=== PATIENT | female | born 1935 ===

== ENCOUNTER 2017-03-01 19:25 | Inpatient (IN) | payer MEDICARE, OTHER ==
[2017-03-01 22:05] LABS: Glucose,Whole Blood 142 mg/dL (75-99)
[2017-03-01 23:59] LABS: Glucose,Whole Blood 156 mg/dL (75-99)
[2017-03-02] MEDS: SODIUM CHLORIDE 0.45% 1,000 ML IV SCH ×2 (01:05→18:17)
[2017-03-02 02:20] LABS: Glucose,Whole Blood 187 mg/dL (75-99)
[2017-03-02 04:12] LABS: Glucose,Whole Blood 229 mg/dL (75-99)
[2017-03-02] MEDS ORDERED: INSULIN REGULAR 100 UNIT in SODIUM CHLORIDE 0.9% 100 ML IV SCH (04:30)
[2017-03-02 06:01] LABS: Glucose,Whole Blood 229 mg/dL (75-99)
[2017-03-02 06:25] LABS: Basophils % (A) 0 %; CH 30.2; CHCM 29.5; Eosinophils % (A) 0 %; HCT 46.3 % (34.0-46.0); HDW 2.45; HGB 13.4 gm/dL (11.4-16.0); Hypochromasia Marked; Luc # (Auto) 0.08; Luc % (Auto) 1; Lymphocytes # (A) 0.9 k/uL (1.0-4.8); Lymphocytes % (A) 10 %; MCH 29.7 pg (25.0-35.0); MCHC 28.9 g/dL (31.0-37.0); MCV 102.9 fL (80.0-100.0); Macrocytosis Slight; Mean Platelet Volume 9.8; Monocytes # (A) 0.3 k/uL (0-1.0); Monocytes % (A) 3 %; Neutrophils # (A) 7.9 k/uL (1.3-7.7); Neutrophils % (A) 86 %; RDW 14.2 % (11.5-15.5); WBC 9.3 k/uL (3.8-10.6); WBC (Perox) 9.12
[2017-03-02 06:42] LABS: Magnesium 2.8 mg/dL (1.6-2.3); Potassium 4.4 mmol/L (3.5-5.1); Total Bilirubin 0.5 mg/dL (0.2-1.3); Total Protein 5.7 g/dL (6.3-8.2)
[2017-03-02] MEDS: INSULIN LISPRO (humaLOG) 300 UNIT/3 ML VIAL SQ SCH ×3 (06:47→18:17)
[2017-03-02] MEDS ORDERED: DEXTROSE 5% IN WATER 1,000 ML IV ONE (07:18)
[2017-03-02] MEDS ORDERED: INSULIN LISPRO (humaLOG) 300 UNIT/3 ML VIAL SQ SCH (07:30)
[2017-03-02 08:08] LABS: Glucose,Whole Blood 219 mg/dL (75-99)
[2017-03-02 10:03] LABS: Glucose,Whole Blood 241 mg/dL (75-99)
[2017-03-02 10:15] VITALS: BMI 22.6
[2017-03-02] MEDS: INSULIN REGULAR 100 UNIT in SODIUM CHLORIDE 0.9% 100 ML IV SCH (10:21)
[2017-03-02 12:38] LABS: Glucose,Whole Blood 274 mg/dL (75-99)
--- NOTE | 2017-03-02 13:25 | P.HPIM ---
History of Present Illness 81-year-old female with appears to have as before dementia, daughter at bedside I was able to get extensive history from the daughter. Patient's etiology of dementia is unknown, can be vascular dementia positive was started is admitted for severe dehydration and hyponatremia patient lives it long-term nursing facility in patient is quite dehydrated doesn't drink or eat well patient is also being treated for urinary tract infection although I do not have significant evidence for that urease was not obtained patient is quite dehydrated apparently was more confused patient is unarousable at this point of time patient does respond to painful still malaise able to protect the airway. Patient's sodium is 166 with chloride of 134 with elevated BUN/creatinine patient is diabetic is on IV insulin and D5 water. 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 Past Anesthesia/Blood Transfusion Reactions: No Reported Reaction Past Psychological History: Anxiety, Schizophrenia Smoking Status: Never smoker Past Drug Use History: None Reported - Past Family History Mother Additional Family Medical History / Comment(s): n/a Father Family Medical History: Myocardial Infarction (DC) Medications and Allergies Home Medications Medication Instructions Recorded Confirmed Type Aspirin 81 mg PO DAILY 03/02/17 03/02/17 History Bisacodyl [Dulcolax] 10 mg RECTAL DAILY PRN 03/02/17 03/02/17 History Ciprofloxacin HCl [Cipro] 500 mg PO BID@1100,2100 03/02/17 03/02/17 History Citalopram Hydrobromide 20 mg PO DAILY@199903/02/17 03/02/17 History [Citalopram HBr] HYDROcodone/APAP 5-325MG [[place] 1 tab PO BID@1100,2000 03/02/17 03/02/17 History 5-325] Hydrocodone/Acetaminophen [[place] 1 tab PO Q4HR PRN 03/02/17 03/02/17 History 5-325] Insulin Glargine,Hum.rec.anlog 8 unit SQ HS 03/02/17 03/02/17 History [Lantus Solostar] LORazepam [Ativan] 0.5 mg PO DAILY@1800 03/02/17 03/02/17 History Loperamide [Imodium] 2 mg PO QID PRN 03/02/17 03/02/17 History Magnesium Hydroxide [Milk of 2,400 mg PO DAILY PRN 03/02/17 03/02/17 History Magnesia] Magnesium Oxide [Mag-Ox] 400 mg PO DAILY@1100 03/02/17 03/02/17 History Na Phos,M-B/Na Phos,Di-Ba [Fleet 133 ml RECTAL DAILY PRN 03/02/17 03/02/17 History Adult] Omeprazole [PriLOSEC] 20 mg PO DAILY@1100 03/02/17 03/02/17 History Sennosides-Docusate Sodium 2 tab PO DAILY@1100 03/02/17 03/02/17 History [Senokot-S] glipiZIDE [Glucotrol] 5 mg PO DAILY 03/02/17 03/02/17 History Allergies Allergy/AdvReac Type Severity Reaction Status Date / Time No Known Allergies Allergy Verified 03/01/17 23:19 Physical Exam Vitals: Vital Signs Temp Pulse Resp BP Pulse Ox 03/02/17 11:44 98.1 F 68 20 116/67 100 03/02/17 08:00 97.6 F 70 20 119/85 99 03/02/17 03:37 66 20 03/02/17 03:34 20 97 03/02/17 03:33 97.1 F L 66 19 150/67 88 L 03/02/17 00:00 64 19 03/01/17 23:54 97.9 F 64 19 129/60 93 L 03/01/17 22:07 96.8 F L 79 19 115/65 97 03/01/17 21:59 96.8 F L 79 19 115/65 97 Intake and Output 03/01/17 03/02/17 03/02/17 22:59 06:59 14:59 Intake Total 800 7.733 Output Total 50 800 Balance -50 0 7.733 Intake: Intake, IV Titration 800 7.733 Amount Insulin Regular 100 unit 7.733 In Sodium Chloride 0.9% 100 ml @ Titrate IV .Q0M GABY Rx#:[id number] Sodium Chloride 0.45% 1, 800 000 ml @ 100 mls/hr IV . Q10H GABY Rx#:[id number] Output: Urine 50 800 Other: Voiding Method Indwelling Catheter Indwelling Catheter Indwelling Catheter Weight 52.5 kg 52.5 kg Patient Weight 03/03/17 06:59 Weight 52.5 kg PHYSICAL EXAMINATION: GENERAL: The patient is pretty much obtunded unresponsive unresponsive to painful stimuli HEENT: Pupils are round and equally reacting to light. Dry mucous membranes, he appeared to be severely dehydrated CARDIOVASCULAR: S1 and S2 present. No murmurs, rubs, or gallops. PULMONARY: Chest is clear to auscultation, no wheezing or crackles. ABDOMEN: Soft, nontender, nondistended, normoactive bowel sounds. No palpable organomegaly. MUSCULOSKELETAL: No joint swelling or deformity. EXTREMITIES: No cyanosis, clubbing, or pedal edema. NEUROLOGICAL: Unable to assess SKIN: No rashes. Results CBC & Chem 7: 03/02/17 05:49 03/02/17 05:49 Labs: Abnormal Lab Results - Last 24 Hours (Table) 03/01/17 03/01/17 03/02/17 Range/Units 22:03 23:58 02:16 Hct (34.0-46.0) % MCV (80.0-100.0) fL MCHC (31.0-37.0) g/dL Plt Count (150-450) k/uL Neutrophils # (1.3-7.7) k/uL Lymphocytes # (1.0-4.8) k/uL Sodium (137-145) mmol/L Chloride (98-107) mmol/L Carbon Dioxide (22-30) mmol/L BUN (7-17) mg/dL Creatinine (0.52-1.04) mg/dL Glucose (74-99) mg/dL POC Glucose (mg/dL) 142 H 156 H 187 H (75-99) mg/dL Hemoglobin A1c (4.2-6.1) % Calcium (8.4-10.2) mg/dL Magnesium (1.6-2.3) mg/dL AST (14-36) U/L ALT (9-52) U/L Troponin I (0.000-0.034) ng/mL Total Protein (6.3-8.2) g/dL Albumin (3.5-5.0) g/dL 03/02/17 03/02/17 03/02/17 Range/Units 04:11 05:49 05:49 Hct 46.3 H (34.0-46.0) % MCV 102.9 H (80.0-100.0) fL MCHC 28.9 L (31.0-37.0) g/dL Plt Count 108 L (150-450) k/uL Neutrophils # 7.9 H (1.3-7.7) k/uL Lymphocytes # 0.9 L (1.0-4.8) k/uL Sodium (137-145) mmol/L Chloride (98-107) mmol/L Carbon Dioxide (22-30) mmol/L BUN (7-17) mg/dL Creatinine (0.52-1.04) mg/dL Glucose (74-99) mg/dL POC Glucose (mg/dL) 229 H (75-99) mg/dL Hemoglobin A1c (4.2-6.1) % Calcium (8.4-10.2) mg/dL Magnesium (1.6-2.3) mg/dL AST (14-36) U/L ALT (9-52) U/L Troponin I 0.051 H* (0.000-0.034) ng/mL Total Protein (6.3-8.2) g/dL Albumin (3.5-5.0) g/dL 03/02/17 03/02/17 03/02/17 Range/Units 05:49 05:49 05:59 Hct (34.0-46.0) % MCV (80.0-100.0) fL MCHC (31.0-37.0) g/dL Plt Count (150-450) k/uL Neutrophils # (1.3-7.7) k/uL Lymphocytes # (1.0-4.8) k/uL Sodium 166 H* (137-145) mmol/L Chloride 134 H* (98-107) mmol/L Carbon Dioxide 20 L (22-30) mmol/L BUN 83 H* (7-17) mg/dL Creatinine 2.30 H (0.52-1.04) mg/dL Glucose 239 H (74-99) mg/dL POC Glucose (mg/dL) 229 H (75-99) mg/dL Hemoglobin A1c 11.0 H (4.2-6.1) % Calcium 8.0 L (8.4-10.2) mg/dL Magnesium 2.8 H (1.6-2.3) mg/dL AST 146 H (14-36) U/L ALT 92 H (9-52) U/L Troponin I (0.000-0.034) ng/mL Total Protein 5.7 L (6.3-8.2) g/dL Albumin 2.9 L (3.5-5.0) g/dL 03/02/17 03/02/17 03/02/17 Range/Units 07:59 10:00 12:04 Hct (34.0-46.0) % MCV (80.0-100.0) fL MCHC (31.0-37.0) g/dL Plt Count (150-450) k/uL Neutrophils # (1.3-7.7) k/uL Lymphocytes # (1.0-4.8) k/uL Sodium (137-145) mmol/L Chloride (98-107) mmol/L Carbon Dioxide (22-30) mmol/L BUN (7-17) mg/dL Creatinine (0.52-1.04) mg/dL Glucose (74-99) mg/dL POC Glucose (mg/dL) 219 H 241 H 274 H (75-99) mg/dL Hemoglobin A1c (4.2-6.1) % Calcium (8.4-10.2) mg/dL Magnesium (1.6-2.3) mg/dL AST (14-36) U/L ALT (9-52) U/L Troponin I (0.000-0.034) ng/mL Total Protein (6.3-8.2) g/dL Albumin (3.5-5.0) g/dL Thrombosis Risk Factor Assmnt - Choose All That Apply Each Risk Factor Represents 3 Points: Age 75 years or older Other congenital or acquired thrombophilia - If yes, enter type in comment: No Thrombosis Risk Factor Assessment Total Risk Factor Score: 3 Thrombosis Risk Factor Assessment Level: Moderate Risk Assessment and Plan Plan: Severe hyponatremia and hypochloremia: Secondary to severe dehydration which is again secondary to poor Intake which is again secondary to advanced dementia and patient is on D5 water with monitoring of follicular lites #2 acute renal failure: Secondary to severe intravascular volume depletion for above-mentioned reasons. #3 advanced dementia. #4 elevated liver enzymes: On specific elevation secondary to severe dehydration. #5 altered mental status her unresponsive state: Secondary to severe dehydration. #6 mild elevated troponin secondary to intravascular depletion and renal dysfunction. #7 diabetes mellitus uncontrolled blood sugars patient is on D5 water with insulin now. #8 hyperlipidemia #9 hypertension Further management is discussion with another daughter whose medical power of a torn he, consult hospice/ palliative care the only reasonable treatment option is comfort care and hospice
[2017-03-02 14:00] LABS: Calcium 7.8 mg/dL (8.4-10.2); Potassium 4.3 mmol/L (3.5-5.1)
[2017-03-02 15:11] LABS: Glucose,Whole Blood 170 mg/dL (75-99)
[2017-03-02 16:03] LABS: Glucose,Whole Blood 155 mg/dL (75-99)
--- NOTE | 2017-03-02 16:07 | CONS ---
CONSULTATION Ms. Wallace is a 81-year-old female who was transferred from [facility] for further evaluation. The history is obtained from the family. Patient is not verbally responding. She has a advanced dementia and apparently she lives in assisted living and has been doing worse clinically and was noted to be having severe hypernatremia with evidence of renal failure of unknown time. She was found to have mild elevation of troponin. Because of that, cardiology consultation was requested. The patient is legally blind. She is not active physically. There is a questionable history of prior myocardial infarction, although the details are very vague. She has no peripheral edema. The family is unaware if she has nausea and vomiting. PAST MEDICAL HISTORY: The past history remarkable for history of the blindness. History of diabetes. She is nonsmoker, not hypertensive. MEDICATIONS: Include: 1. Glucotrol. 2. Prilosec. 3. Milk of Mag. 4. Ativan. 5. Insulin. 6. Citalopram. 7. Cipro. 8. Dulcolax. 9. Aspirin. REVIEW OF SYSTEMS: Today is very limited, but she has no recent wheezing or cough. GI system. The family is unaware of if she had nausea and vomiting. system: There is no history of hematuria: Nervous system no history of stroke or seizure. There was history of dementia. PHYSICAL EXAMINATION: 81-year-old female, not answering verbal stimulation and grimacing. Blood pressure 116/60 with a heart in 60s, blind. Neck no bruit. LUNGS: Clear to auscultation anteriorly. Heart regular rate and rhythm, S1, S2. No S3. No rub appreciated. ABDOMEN: Soft, nontender. Positive bowel sounds. No organomegaly. EXTREMITIES: No edema. LAB DATA: Sodium 166. Chloride 134. BUN and creatinine 83 and 2.3. Troponin of 0.051. Her hemoglobin is 13.4. I have no EKG available at this point, but on the monitor she is in sinus mechanism. IMPRESSION: 1. Severe dehydration with severe hypernatremia. 2. Renal failure of unknown duration. 3. Diabetes mellitus. 4. Elevation of troponin, most likely related to the renal failure. There is no evidence to suggest a primary cardiac event. 5. History of advanced dementia. 6. History of blindness. RECOMMENDATION: From the cardiac standpoint, I would not recommend any cardiac workup. Unfortunately, the prognosis is quite poor. We will see her on an as needed basis. Please feel free to call us for any questions. MMODL / IJN: [id number] /
[2017-03-02] MEDS ORDERED: ACETAMINOPHEN IV (For NPO) 1,000 MG in EMPTY BAG 1 BAG IVPB PRN (17:19)
[2017-03-02 18:00] LABS: Glucose,Whole Blood 144 mg/dL (75-99)
[2017-03-02] MEDS ORDERED: ACETAMINOPHEN IV (For NPO) 1,000 MG in EMPTY BAG 1 BAG IVPB SCH (18:00)
[2017-03-02 19:52] LABS: Glucose,Whole Blood 120 mg/dL (75-99)
--- NOTE | 2017-03-02 20:58 | CONS ---
CONSULTATION REASON FOR CONSULT: Renal failure and hypernatremia. DATE OF CONSULTATION: Today, 03/02/2017. HISTORY OF PRESENT ILLNESS: The patient is a 81-year-old female who has a baseline history of dementia. The patient was brought in by the family secondary to decreased mentation. She has not been eating or drinking much. She was noted to have a serum sodium of 166 mEq/L and serum creatinine of 2.3 mg/dL. Currently, patient is maintained on D5W. She is a barely arousable, but does move her extremities and responds to painful stimuli. PAST MEDICAL HISTORY: Dementia, diabetes, history of constipation, hyperlipidemia, osteoarthritis, optic nerve tumor, anxiety, schizophrenia. PAST SURGICAL HISTORY: Cholecystectomy. SOCIAL HISTORY: Negative for smoking, drug abuse or alcohol abuse. REVIEW OF SYSTEMS: As per HPI. Other systems negative. No diarrhea, nausea, vomiting or abdominal pain. MEDICATIONS: At home include: 1. Aspirin. 2. Dulcolax. 3. Cipro. 4. Insulin. 5. Ativan. 6. Imodium. 7. Mag oxide. 8. Prilosec. 9. Glucotrol. 10.Senokot. ALLERGIES: None. PHYSICAL EXAMINATION: On examination, patient is currently lying in bed. She appears comfortable. She is not in any acute distress. She responds to painful stimuli. Blood pressure is 119/85, heart rate 70 per minute. The patient is not able to carry on a conversation. She is currently afebrile. HEART: S1, S2. LUNGS: Bilateral breath sounds are heard. Decreased breath sounds at bases. ABDOMEN: Soft, nontender. Lower extremities show no evidence of edema. FAMILY DENTIST: Cannot be assessed in detail. LABS: Show sodium 166, potassium 4.4, chloride 134, BUN 83, serum creatinine 2.3, hemoglobin 13.4 g/dL. Calcium is 8.0. ASSESSMENT: 1. Acute kidney injury, mostly prerenal. Continue with IV fluids. The patient has an indwelling [place] catheter. 2. Hypernatremia secondary to free water deficit and decreased oral intake, slowly improving. May continue with the D5W. 3. Underlying dementia. PLAN: Change IV fluids back to D5W and repeat labs in a.m. Thank you for this consultation. We will continue to follow the patient with you during her hospitalization. MMODL / IJN: [id number] /
[2017-03-02] MEDS: DEXTROSE 5% IN WATER 1,000 ML IV SCH (21:28)
[2017-03-02 21:29] LABS: Glucose,Whole Blood 179 mg/dL (75-99)
[2017-03-02] MEDS ORDERED: LORazepam 2 MG/ML INJ IV PRN (22:03)
[2017-03-02 23:28] LABS: Glucose,Whole Blood 208 mg/dL (75-99)
[2017-03-02] MEDS: MORPHINE SULFATE 2 MG/ML SYRINGE IVP PRN (23:56)
[2017-03-03 01:31] LABS: Glucose,Whole Blood 213 mg/dL (75-99)
[2017-03-03 03:14] LABS: Glucose,Whole Blood 192 mg/dL (75-99)
[2017-03-03] MEDS: MORPHINE SULFATE 2 MG/ML SYRINGE IVP PRN ×2 (05:04→10:10)
[2017-03-03 05:22] LABS: Glucose,Whole Blood 241 mg/dL (75-99)
[2017-03-03] MEDS: DEXTROSE 5% IN WATER 1,000 ML IV SCH (05:40)
[2017-03-03] MEDS: INSULIN LISPRO (humaLOG) 300 UNIT/3 ML VIAL SQ SCH ×2 (06:15→14:23)
[2017-03-03 07:11] LABS: Glucose,Whole Blood 219 mg/dL (75-99)
[2017-03-03 08:59] VITALS: BP 150/70; PULSE 64; RESP 20; TEMP 96.9
[2017-03-03 09:23] LABS: Glucose,Whole Blood 237 mg/dL (75-99)
[2017-03-03 10:27] LABS: Calcium 7.7 mg/dL (8.4-10.2); Potassium 4.5 mmol/L (3.5-5.1)
[2017-03-03 11:20] LABS: Glucose,Whole Blood 193 mg/dL (75-99)
[2017-03-03] MEDS: INSULIN REGULAR 100 UNIT in SODIUM CHLORIDE 0.9% 100 ML IV SCH (11:25)
--- NOTE | 2017-03-03 14:26 | PN ---
PROGRESS NOTE Patient is seen for followup for hypernatremia and acute kidney injury. The patient is maintained on D5W. Her serum sodium level was at 163 yesterday. IV fluids were changed to D5W. She is at 155 today. Patient is a little bit more arousable; however, she does not open her eyes or talk. PHYSICAL EXAMINATION: Blood pressure is 150/70, heart rate of 64 per minute. She is afebrile. Examination of the heart S1, S2. Examination of the lungs, bilateral breath sounds are heard. Abdomen is soft, nontender. 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 LABS: Sodium 155, potassium 4.5, chloride 121, BUN 54, serum creatinine 1.5. ASSESSMENT: 1. Acute kidney injury prerenal, currently improving. 2. Hypernatremia secondary to free water deficit, currently improving. Continue with the D5W. 3. Baseline dementia with worsening mental status secondary to electrolyte imbalance, currently improving. 4. Intravascular volume depletion, maintained on D5W. 5. History of blindness. PLAN: Continue D5W. Repeat labs in a.m.. MMODL / IJN: [id number] /
--- NOTE | 2017-03-04 00:08 | P.PN ---
Subjective Progress Note Date: 03/03/17 Principal diagnosis: Altered mental status 81-year-old female with a past medical history of advanced dementia, hypertension, diabetes mellitus uncontrolled, hyperlipidemia and multiple other medical problems admitted for severe dehydration and hyponatremia as well as hyperglycemia. patient lives it long-term nursing facility in patient is quite dehydrated doesn't drink or eat well patient is also being treated for urinary tract infection. patient is quite dehydrated apparently was more confused patient is unarousable at this point of time patient does respond to painful still malaise able to protect the airway. Patient's sodium is 166 with chloride of 134 with elevated BUN/creatinine patient is diabetic is on IV insulin and D5 water. 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 Next On 03/03/2017 Patient is still unresponsive. Sodium level is slightly improved to 155 as well as renal function is improving as well. Still maintained on insulin and blood sugar is fairly controlled. No fever no chills. Patient cannot provide any history. Prognosis is poor. Because of the above-mentioned reasons I had extensive discussion with one of her daughter was also medical power of account review specialist and consulted being hospice. Complete review of systems could not be obtained. Objective - Vital Signs Vital signs: Vital Signs Temp 96.9 F L 03/03/17 08:00 Pulse 64 03/03/17 08:00 Resp 20 03/03/17 08:00 BP 150/70 03/03/17 08:00 Pulse Ox 94 L 03/03/17 08:00 Intake & Output 03/03/17 03/03/17 03/04/17 06:59 18:59 06:59 Intake Total 514.809 20.692 Output Total 1100 Balance -585.191 20.692 Weight 55 kg Intake: Intake, IV Titration 514.809 20.692 Amount Dextrose 5% in Water 1, 500 000 ml @ 100 mls/hr IV . Q10H GABY Rx#:[id number] Insulin Regular 100 unit 14.809 20.692 In Sodium Chloride 0.9% 100 ml @ Titrate IV .Q0M GABY Rx#:[id number] Output: Urine 1100 Uretheral (West) 400 Other: Voiding Method Indwelling Catheter Indwelling Catheter - Exam PHYSICAL EXAMINATION: Patient is lying in the bed comfortably. Moans with pain sometimes. Patient is unarousable HEENT: Normocephalic. Neck is supple. Pupils reactive. Nostrils clear. Oral cavity is moist. Ears reveal no drainage. Neck reveals no JVD, carotid bruits, or thyromegaly. CHEST EXAMINATION: Trachea is central. Symmetrical expansion. Lung garcia clear to auscultation and percussion. CARDIAC: Normal S1, S2 with no gallops. No murmurs ABDOMEN: Soft. Bowel sounds normal. No organomegaly. No abdominal bruits. Extremities: reveal no edema. No clubbing or cyanosis Neurologically. Patient is unarousable and could not follow any commands. Skin: No rash or skin lesions. Psychiatric: Could not be assessed Musculoskeletal: No joint swelling or deformity. - Labs CBC & Chem 7: 03/02/17 05:49 03/03/17 10:00 Labs: Abnormal Lab Results - Last 24 Hours (Table) 03/02/17 03/02/17 03/03/17 Range/Units 21:16 23:15 01:29 Sodium (137-145) mmol/L Chloride (98-107) mmol/L BUN (7-17) mg/dL Creatinine (0.52-1.04) mg/dL Glucose (74-99) mg/dL POC Glucose (mg/dL) 179 H 208 H 213 H (75-99) mg/dL Calcium (8.4-10.2) mg/dL 03/03/17 03/03/17 03/03/17 Range/Units 03:12 05:20 07:09 Sodium (137-145) mmol/L Chloride (98-107) mmol/L BUN (7-17) mg/dL Creatinine (0.52-1.04) mg/dL Glucose (74-99) mg/dL POC Glucose (mg/dL) 192 H 241 H 219 H (75-99) mg/dL Calcium (8.4-10.2) mg/dL 03/03/17 03/03/17 03/03/17 Range/Units 09:11 10:00 11:15 Sodium 155 H (137-145) mmol/L Chloride 121 H* (98-107) mmol/L BUN 54 H (7-17) mg/dL Creatinine 1.50 H (0.52-1.04) mg/dL Glucose 224 H (74-99) mg/dL POC Glucose (mg/dL) 237 H 193 H (75-99) mg/dL Calcium 7.7 L (8.4-10.2) mg/dL Assessment and Plan Plan: #1 Severe hyponatremia and hypochloremia: Secondary to severe dehydration which is again secondary to poor Intake which is again secondary to advanced dementia and patient is on D5 water with monitoring of electrolytes #2 acute renal failure: Secondary to severe intravascular volume depletion for above-mentioned reasons. #3 advanced dementia. #4 elevated liver enzymes: On specific elevation secondary to severe dehydration. #5 altered mental status her unresponsive state: Secondary to severe dehydration. #6 mild elevated troponin secondary to intravascular depletion and renal dysfunction. #7 diabetes mellitus uncontrolled blood sugars patient is on D5 water with insulin now. #8 hyperlipidemia #9 hypertension I did discuss with her family in detail. Patient's daughter is her power of account review specialist. As per family request will consult hospice/ palliative care as the only reasonable treatment option is comfort care and hospice Time with Patient: Greater than 30
--- NOTE | 2017-03-04 00:10 | P.DS ---
Providers Date of admission: 03/01/17 21:58 Expected date of discharge: 03/03/17 Attending physician: Rose Marie Montes Consults: 03/02/17 07:19 Consult Physician Routine Consulting Provider: Sadie Prado Consult Reason/Comments: renal failure Do you want consulting provider notified?: Yes 03/02/17 07:31 Consult Physician Routine Consulting Provider: Darrell Zavala Consult Reason/Comments: positive trops Do you want consulting provider notified?: Yes, Notify in am Primary care physician: Gallo Cooney Hospital Course: Discharge diagnosis #1 Severe hyponatremia and hypochloremia: Secondary to severe dehydration which is again secondary to poor Intake which is again secondary to advanced dementia and patient is on D5 water with monitoring of electrolytes #2 acute renal failure: Secondary to severe intravascular volume depletion for above-mentioned reasons. #3 advanced dementia. #4 elevated liver enzymes: On specific elevation secondary to severe dehydration. #5 altered mental status. Acute metabolic encephalopathy. unresponsive state: Secondary to severe dehydration. #6 mild elevated troponin secondary to intravascular depletion and renal dysfunction. #7 diabetes mellitus uncontrolled blood sugars patient is on D5 water with insulin now. #8 hyperlipidemia #9 hypertension Hospital course 81-year-old female with a past medical history of advanced dementia, hypertension, diabetes mellitus uncontrolled, hyperlipidemia and multiple other medical problems admitted for severe dehydration and hyponatremia as well as hyperglycemia. patient lives it long-term nursing facility in patient is quite dehydrated doesn't drink or eat well patient is also being treated for urinary tract infection. patient is quite dehydrated apparently was more confused patient is unarousable at this point of time patient does respond to painful still malaise able to protect the airway. Patient's sodium is 166 with chloride of 134 with elevated BUN/creatinine patient is diabetic is on IV insulin and D5 water. 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 Next On 03/03/2017 Patient is still unresponsive. Sodium level is slightly improved to 155 as well as renal function is improving as well. Still maintained on insulin and blood sugar is fairly controlled. No fever no chills. Patient cannot provide any history. Prognosis is poor. Because of the above-mentioned reasons I had extensive discussion with one of her daughter was also medical power of estate planning attorney and consulted being hospice. Complete review of systems could not be obtained. Physical examination Patient is lying in the bed comfortably. Moans with pain sometimes. Patient is unarousable HEENT: Normocephalic. Neck is supple. Pupils reactive. Nostrils clear. Oral cavity is moist. Ears reveal no drainage. Neck reveals no JVD, carotid bruits, or thyromegaly. CHEST EXAMINATION: Trachea is central. Symmetrical expansion. Lung garcia clear to auscultation and percussion. CARDIAC: Normal S1, S2 with no gallops. No murmurs ABDOMEN: Soft. Bowel sounds normal. No organomegaly. No abdominal bruits. Extremities: reveal no edema. No clubbing or cyanosis Neurologically. Patient is unarousable and could not follow any commands. Skin: No rash or skin lesions. Psychiatric: Could not be assessed Musculoskeletal: No joint swelling or deformity. Patient Condition at Discharge: Serious Plan - Discharge Summary New Discharge Prescriptions: No Action Loperamide [Imodium] 2 mg PO QID PRN PRN Reason: Diarrhea Na Phos,M-B/Na Phos,Di-Ba [Fleet Adult] 133 ml RECTAL DAILY PRN PRN Reason: Constipation Hydrocodone/Acetaminophen [[place] 5-325] 1 tab PO Q4HR PRN PRN Reason: Pain HYDROcodone/APAP 5-325MG [[place] 5-325] 1 tab PO BID@1100,2000 Bisacodyl [Dulcolax] 10 mg RECTAL DAILY PRN PRN Reason: Constipation Ciprofloxacin HCl [Cipro] 500 mg PO BID@1100,2100 Sennosides-Docusate Sodium [Senokot-S] 2 tab PO DAILY@1100 Omeprazole [PriLOSEC] 20 mg PO DAILY@1100 glipiZIDE [Glucotrol] 5 mg PO DAILY Magnesium Oxide [Mag-Ox] 400 mg PO DAILY@1100 Insulin Glargine,Hum.rec.anlog [Lantus Solostar] 8 unit SQ HS LORazepam [Ativan] 0.5 mg PO DAILY@1800 Citalopram Hydrobromide [Citalopram HBr] 20 mg PO DAILY@2000 Aspirin 81 mg PO DAILY Magnesium Hydroxide [Milk of Magnesia] 2,400 mg PO DAILY PRN PRN Reason: Constipation Discharge Medication List Aspirin 81 mg PO DAILY 03/02/17 [History] Bisacodyl [Dulcolax] 10 mg RECTAL DAILY PRN 03/02/17 [History] Ciprofloxacin HCl [Cipro] 500 mg PO BID@1100,2100 03/02/17 [History] Citalopram Hydrobromide [Citalopram HBr] 20 mg PO DAILY@199903/02/17 [History] HYDROcodone/APAP 5-325MG [[place] 5-325] 1 tab PO BID@1100,199903/02/17 [History] Hydrocodone/Acetaminophen [[place] 5-325] 1 tab PO Q4HR PRN 03/02/17 [History] Insulin Glargine,Hum.rec.anlog [Lantus Solostar] 8 unit SQ HS 03/02/17 [History] LORazepam [Ativan] 0.5 mg PO DAILY@1800 03/02/17 [History] Loperamide [Imodium] 2 mg PO QID PRN 03/02/17 [History] Magnesium Hydroxide [Milk of Magnesia] 2,400 mg PO DAILY PRN 03/02/17 [History] Magnesium Oxide [Mag-Ox] 400 mg PO DAILY@109903/02/17 [History] Na Phos,M-B/Na Phos,Di-Ba [Fleet Adult] 133 ml RECTAL DAILY PRN 03/02/17 [ History] Omeprazole [PriLOSEC] 20 mg PO DAILY@1100 03/02/17 [History] Sennosides-Docusate Sodium [Senokot-S] 2 tab PO DAILY@1100 03/02/17 [History] glipiZIDE [Glucotrol] 5 mg PO DAILY 03/02/17 [History] Discharge Disposition: DISCH TO [facility]
[2017-03-04 03:35] LABS: Glucose,Whole Blood 203 mg/dL (75-99)
== END 2017-03-03 15:11 | disposition hospice, inpatient (51) | DRG 682 ==
LOC: EEVIPCON 21:58 → 6SEL 21:58
PROVIDERS: ADMIT Internal Medicine; ATTEND Internal Medicine
DX: N17.9 Acute kidney failure, unspecified (principal); G93.41 Metabolic encephalopathy; E87.0 Hyperosmolality and hypernatremia; E11.65 Type 2 diabetes mellitus with hyperglycemia; E87.8 Other disorders of electrolyte and fluid balance, not elsewhere classified; E86.0 Dehydration; E78.5 Hyperlipidemia, unspecified; F01.50 Vascular dementia, unspecified severity, without behavioral disturbance, psychotic disturbance, mood disturbance, and anxiety; F20.9 Schizophrenia, unspecified; F41.9 Anxiety disorder, unspecified; H54.8 Legal blindness, as defined in USA; I10 Essential (primary) hypertension; I25.2 Old myocardial infarction; J45.909 Unspecified asthma, uncomplicated; Z79.82 Long term (current) use of aspirin; Z79.84 Long term (current) use of oral hypoglycemic drugs; Z79.899 Other long term (current) drug therapy; M19.90 Unspecified osteoarthritis, unspecified site; Z82.49 Family history of ischemic heart disease and other diseases of the circulatory system
CPT/HCPCS: 80048; 80053; 83036; 83735; 84484; 85025

== ENCOUNTER 2017-03-03 15:14 | Inpatient (IN) | payer MEDICAID ==
[2017-03-03] MEDS ORDERED: DEXTROSE 5% IN WATER 1,000 ML IV SCH (18:30)
[2017-03-03] MEDS ORDERED: MORPHINE SULFATE 2 MG/ML SYRINGE IVP PRN (18:33)
[2017-03-03] MEDS ORDERED: LORazepam 2 MG/ML INJ IV PRN (18:34)
[2017-03-03] MEDS ORDERED: ACETAMINOPHEN SUPPOSITORY 650 MG SUPP RECTAL PRN (18:37)
[2017-03-03] MEDS ORDERED: BISACODYL 10 MG SUPP RECTAL PRN (18:38)
[2017-03-03] MEDS ORDERED: ONDANSETRON 4 MG/2 ML VIAL IVP PRN (18:39)
[2017-03-03] MEDS ORDERED: INSULIN REGULAR 100 UNIT in SODIUM CHLORIDE 0.9% 100 ML IV SCH (18:45)
[2017-03-03] MEDS ORDERED: SCOPOLAMINE 1.5MG/72HR PATCH TRANSDERM PRN (20:25)
[2017-03-03] MEDS: MORPHINE SULFATE (100 MG/2 ML) 100 MG in SODIUM CHLORIDE 0.9% 100 ML IV SCH (22:03)
[2017-03-04 03:35] LABS: Glucose,Whole Blood 200 mg/dL (75-99)
[2017-03-04 03:35] LABS: Glucose,Whole Blood 212 mg/dL (75-99)
[2017-03-04 08:29] VITALS: PULSE 80
--- NOTE | 2017-03-04 14:38 | P.HPIM ---
History of Present Illness H&P Date: 03/04/17 Chief Complaint: Altered mental status 81-year-old female with a past medical history of advanced dementia, hypertension, diabetes mellitus uncontrolled, hyperlipidemia and multiple other medical problems admitted for severe dehydration and hyponatremia as well as hyperglycemia. patient lives it long-term nursing facility in patient is quite dehydrated doesn't drink or eat well patient is also being treated for urinary tract infection. patient is quite dehydrated apparently was more confused patient is unarousable at this point of time patient does respond to painful still malaise able to protect the airway. Patient's sodium is 166 with chloride of 134 with elevated BUN/creatinine patient is diabetic is on IV insulin and D5 water. 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 Because of the above-mentioned reasons I had extensive discussion with one of her daughter was also medical power of deputy commonwealth's attorney and consulted being hospice. Complete review of systems could not be obtained. 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 Past Anesthesia/Blood Transfusion Reactions: No Reported Reaction Past Psychological History: Anxiety, Schizophrenia Smoking Status: Never smoker Past Drug Use History: None Reported - Past Family History Mother Additional Family Medical History / Comment(s): n/a Father Family Medical History: Myocardial Infarction ([place]) Medications and Allergies Home Medications Medication Instructions Recorded Confirmed Type Aspirin 81 mg PO DAILY 03/02/17 03/03/17 History Bisacodyl [Dulcolax] 10 mg RECTAL DAILY PRN 03/02/17 03/03/17 History Ciprofloxacin HCl [Cipro] 500 mg PO BID@1100,2100 03/02/17 03/03/17 History Citalopram Hydrobromide 20 mg PO DAILY@199903/02/17 03/03/17 History [Citalopram HBr] HYDROcodone/APAP 5-325MG [[place] 1 tab PO BID@1100,2000 03/02/17 03/03/17 History 5-325] Hydrocodone/Acetaminophen [[place] 1 tab PO Q4HR PRN 03/02/17 03/03/17 History 5-325] Insulin Glargine,Hum.rec.anlog 8 unit SQ HS 03/02/17 03/03/17 History [Lantus Solostar] LORazepam [Ativan] 0.5 mg PO DAILY@1800 03/02/17 03/03/17 History Loperamide [Imodium] 2 mg PO QID PRN 03/02/17 03/03/17 History Magnesium Hydroxide [Milk of 2,400 mg PO DAILY PRN 03/02/17 03/03/17 History Magnesia] Magnesium Oxide [Mag-Ox] 400 mg PO DAILY@1100 03/02/17 03/03/17 History Na Phos,M-B/Na Phos,Di-Ba [Fleet 133 ml RECTAL DAILY PRN 03/02/17 03/03/17 History Adult] Omeprazole [PriLOSEC] 20 mg PO DAILY@1100 03/02/17 03/03/17 History Sennosides-Docusate Sodium 2 tab PO DAILY@1100 03/02/17 03/03/17 History [Senokot-S] glipiZIDE [Glucotrol] 5 mg PO DAILY 03/02/17 03/03/17 History Allergies Allergy/AdvReac Type Severity Reaction Status Date / Time No Known Allergies Allergy Verified 03/03/17 16:33 Physical Exam Vitals: Vital Signs Pulse Resp 03/04/17 08:28 80 10 L 03/04/17 08:00 10 L 03/04/17 00:00 70 10 L 03/03/17 20:00 65 10 L 03/03/17 17:18 5 L Intake and Output 03/03/17 03/04/17 03/04/17 22:59 06:59 14:59 Intake Total 0.714 1.802 19.21 Output Total 400 50 Balance -399.286 -48.198 19.21 Intake: Intake, IV Titration 0.714 1.802 19.21 Amount Morphine Sulfate (100 mg/ 0.714 1.802 19.21 2 ml) 100 mg In Sodium Chloride 0.9% 100 ml @ 1 MG/HR 1.02 mls/hr IV . Q24H GABY Rx#:[id number] Output: Urine 400 50 Other: Voiding Method Indwelling Catheter Indwelling Catheter Indwelling Catheter # Voids 1 1 Weight 55 kg 58 kg Patient is lying in the bed comfortably. Moans with pain sometimes. Patient is unarousable HEENT: Normocephalic. Neck is supple. Pupils reactive. Nostrils clear. Oral cavity is moist. Ears reveal no drainage. Neck reveals no JVD, carotid bruits, or thyromegaly. CHEST EXAMINATION: Trachea is central. Symmetrical expansion. Lung garcia clear to auscultation and percussion. CARDIAC: Normal S1, S2 with no gallops. No murmurs ABDOMEN: Soft. Bowel sounds normal. No organomegaly. No abdominal bruits. Extremities: reveal no edema. No clubbing or cyanosis Neurologically. Patient is unarousable and could not follow any commands. Skin: No rash or skin lesions. Psychiatric: Could not be assessed Musculoskeletal: No joint swelling or deformity. Results Labs: Abnormal Lab Results - Last 24 Hours (Table) 03/03/17 03/03/17 Range/Units 17:12 19:24 POC Glucose (mg/dL) 212 H 200 H (75-99) mg/dL Assessment and Plan Plan: #1 Severe hyponatremia and hypochloremia: Secondary to severe dehydration which is again secondary to poor Intake which is again secondary to advanced dementia and patient is on D5 water with monitoring of electrolytes #2 acute renal failure: Secondary to severe intravascular volume depletion for above-mentioned reasons. #3 advanced dementia. #4 elevated liver enzymes: On specific elevation secondary to severe dehydration. #5 Acute metabolic encephalopathy. unresponsive state: Secondary to severe dehydration, HUYEN and Hyperglycemia #6 mild elevated troponin secondary to intravascular depletion and renal dysfunction. #7 diabetes mellitus uncontrolled blood sugars patient is on D5 water with insulin now. #8 hyperlipidemia #9 hypertension Patient be continued on morphine and scopolamine titrated to comfort care. Continue to follow.
[2017-03-05] MEDS: MORPHINE SULFATE (100 MG/2 ML) 100 MG in SODIUM CHLORIDE 0.9% 100 ML IV SCH ×2 (02:31→11:09)
[2017-03-05] MEDS: ATROPINE OPHTH SOLN 1% 5ML BTL SUBLINGUAL PRN ×2 (05:56→09:04)
[2017-03-05 08:17] VITALS: RESP 14
--- NOTE | 2017-03-06 00:58 | P.PN ---
Subjective Progress Note Date: 03/05/17 Principal diagnosis: Altered mental status 81-year-old female with a past medical history of advanced dementia, hypertension, diabetes mellitus uncontrolled, hyperlipidemia and multiple other medical problems admitted for severe dehydration and hyponatremia as well as hyperglycemia. patient lives it long-term nursing facility in patient is quite dehydrated doesn't drink or eat well patient is also being treated for urinary tract infection. patient is quite dehydrated apparently was more confused patient is unarousable at this point of time patient does respond to painful still malaise able to protect the airway. Patient's sodium is 166 with chloride of 134 with elevated BUN/creatinine patient is diabetic is on IV insulin and D5 water. 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 Because of the above-mentioned reasons I had extensive discussion with one of her daughter was also medical power of collections attorney and consulted being hospice. 03/05/2017 Patient is lying in the bed comfortably. Patient is on morphine drip. Patient is not arousable. Hospice services following. Complete review of systems could not be obtained. Objective - Vital Signs Vital signs: Vital Signs Temp Pulse 80 03/04/17 08:28 Resp 14 03/05/17 08:00 BP Pulse Ox Intake & Output 03/05/17 03/05/17 03/06/17 06:59 18:59 06:59 Intake Total 128 167.687 Output Total 400 Balance -272 167.687 Intake: IV 128 112 Morphine Sulfate (100 mg/ 8 32 2 ml) 100 mg In Sodium Chloride 0.9% 100 ml @ 1 MG/HR 1.02 mls/hr IV . Q24H GABY Rx#:[id number] ns @10 120 80 Intake, IV Titration 55.687 Amount Morphine Sulfate (100 mg/ 55.687 2 ml) 100 mg In Sodium Chloride 0.9% 100 ml @ 1 MG/HR 1.02 mls/hr IV . Q24H GABY Rx#:[id number] Output: Urine 400 Other: Voiding Method Indwelling Catheter Indwelling Catheter Indwelling Catheter - Exam PHYSICAL EXAMINATION: Patient is lying in the bed comfortably. Arousable. Moans at times Heart S1-S2 heard Lungs bilateral air entry is present. diminished breath sounds basally Abdomen soft and nondistended Extremities no edema. Assessment and Plan Plan: #1 Severe hyponatremia and hypochloremia: Secondary to severe dehydration which is again secondary to poor Intake which is again secondary to advanced dementia and patient is on D5 water with monitoring of electrolytes #2 acute renal failure: Secondary to severe intravascular volume depletion for above-mentioned reasons. #3 advanced dementia. #4 elevated liver enzymes: On specific elevation secondary to severe dehydration. #5 Acute metabolic encephalopathy. unresponsive state: Secondary to severe dehydration, HUYEN and Hyperglycemia #6 mild elevated troponin secondary to intravascular depletion and renal dysfunction. #7 diabetes mellitus uncontrolled blood sugars patient is on D5 water with insulin now. #8 hyperlipidemia #9 hypertension Patient be continued on morphine and scopolamine titrated to comfort care. Continue to follow. Hospice services following.
--- NOTE | 2017-03-06 11:51 | P.PN ---
Subjective Patient was admitted to hospice with end-stage diagnosis of severe dementia, either vascular or dementia of Alzheimer's type. Patient was admitted with severe dehydration patient is presently pain controlled is comfortable. Objective - Vital Signs Vital signs: Vital Signs Temp Pulse 80 03/04/17 08:28 Resp 14 03/05/17 08:00 BP Pulse Ox Intake & Output 03/05/17 03/06/17 03/06/17 18:59 06:59 18:59 Intake Total 167.687 190 Balance 167.687 190 Intake: IV 112 190 Morphine Sulfate (100 mg/ 32 2 ml) 100 mg In Sodium Chloride 0.9% 100 ml @ 1 MG/HR 1.02 mls/hr IV . Q24H GABY Rx#:[id number] ns @10 80 190 Intake, IV Titration 55.687 Amount Morphine Sulfate (100 mg/ 55.687 2 ml) 100 mg In Sodium Chloride 0.9% 100 ml @ 1 MG/HR 1.02 mls/hr IV . Q24H GABY Rx#:[id number] Other: Voiding Method Indwelling Catheter Indwelling Catheter Indwelling Catheter # Voids 2 - Exam Comfortable, arousable to painful similar shallow breathing dry mucous membranes. HEENT: Pupils constricted CARDIOVASCULAR: S1 and S2 present. No murmurs, rubs, or gallops. PULMONARY: Shallow breathing rhonchus breath sounds ABDOMEN: Soft, nontender, nondistended, normoactive bowel sounds. No palpable organomegaly. Assessment and Plan Plan: #1 Severe hyponatremia and hypochloremia: #2 acute renal failure: #3 advanced dementia. #4 elevated liver enzymes: #5 Acute metabolic encephalopathy. #6 mild elevated troponin secondary to intravascular depletion and renal dysfunction. #7 diabetes mellitus uncontrolled blood sugars Patient's comfort care now
[2017-03-06] MEDS: MORPHINE SULFATE (100 MG/2 ML) 100 MG in SODIUM CHLORIDE 0.9% 100 ML IV SCH (13:10)
--- NOTE | 2017-03-07 15:25 | P.DS ---
Providers Date of admission: 03/03/17 15:14 Attending physician: Rose Marie Montes Primary care physician: Stated None Hospital Course: Patient was admitted under hospice inpatient care, patient earlier today morning please refer to nursing documentation for further details. Pulmonary cause of : Secondary to severe dehydration and hyponatremia from advanced dementia Plan - Discharge Summary New Discharge Prescriptions: No Action Loperamide [Imodium] 2 mg PO QID PRN PRN Reason: Diarrhea Na Phos,M-B/Na Phos,Di-Ba [Fleet Adult] 133 ml RECTAL DAILY PRN PRN Reason: Constipation Hydrocodone/Acetaminophen [[place] 5-325] 1 tab PO Q4HR PRN PRN Reason: Pain HYDROcodone/APAP 5-325MG [[place] 5-325] 1 tab PO BID@1100,1999 Bisacodyl [Dulcolax] 10 mg RECTAL DAILY PRN PRN Reason: Constipation Ciprofloxacin HCl [Cipro] 500 mg PO BID@1100,2099 Sennosides-Docusate Sodium [Senokot-S] 2 tab PO DAILY@1100 Omeprazole [PriLOSEC] 20 mg PO DAILY@1100 glipiZIDE [Glucotrol] 5 mg PO DAILY Magnesium Oxide [Mag-Ox] 400 mg PO DAILY@1100 Insulin Glargine,Hum.rec.anlog [Lantus Solostar] 8 unit SQ HS LORazepam [Ativan] 0.5 mg PO DAILY@1800 Citalopram Hydrobromide [Citalopram HBr] 20 mg PO DAILY@1999 Aspirin 81 mg PO DAILY Magnesium Hydroxide [Milk of Magnesia] 2,400 mg PO DAILY PRN PRN Reason: Constipation Discharge Medication List Aspirin 81 mg PO DAILY 03/02/17 [History] Bisacodyl [Dulcolax] 10 mg RECTAL DAILY PRN 03/02/17 [History] Ciprofloxacin HCl [Cipro] 500 mg PO BID@1100,209903/02/17 [History] Citalopram Hydrobromide [Citalopram HBr] 20 mg PO DAILY@199903/02/17 [History] HYDROcodone/APAP 5-325MG [[place] 5-325] 1 tab PO BID@1100,199903/02/17 [History] Hydrocodone/Acetaminophen [[place] 5-325] 1 tab PO Q4HR PRN 03/02/17 [History] Insulin Glargine,Hum.rec.anlog [Lantus Solostar] 8 unit SQ HS 03/02/17 [History] LORazepam [Ativan] 0.5 mg PO DAILY@1800 03/02/17 [History] Loperamide [Imodium] 2 mg PO QID PRN 03/02/17 [History] Magnesium Hydroxide [Milk of Magnesia] 2,400 mg PO DAILY PRN 03/02/17 [History] Magnesium Oxide [Mag-Ox] 400 mg PO DAILY@1100 03/02/17 [History] Na Phos,M-B/Na Phos,Di-Ba [Fleet Adult] 133 ml RECTAL DAILY PRN 03/02/17 [ History] Omeprazole [PriLOSEC] 20 mg PO DAILY@1100 03/02/17 [History] Sennosides-Docusate Sodium [Senokot-S] 2 tab PO DAILY@1100 03/02/17 [History] glipiZIDE [Glucotrol] 5 mg PO DAILY 03/02/17 [History] Discharge Disposition: - Preliminary Cause of Preliminary Cause of : Dehydration, hyponatremia secondary to advanced dementia
== END 2017-03-07 11:25 | disposition expired | DRG 682 ==
LOC: 6SEL 15:14 → 5ONC 03-04 15:42
PROVIDERS: ADMIT Internal Medicine; ATTEND Internal Medicine
DX: N17.9 Acute kidney failure, unspecified (principal); G93.41 Metabolic encephalopathy; E11.65 Type 2 diabetes mellitus with hyperglycemia; E87.1 Hypo-osmolality and hyponatremia; E87.8 Other disorders of electrolyte and fluid balance, not elsewhere classified; G30.9 Alzheimer's disease, unspecified; F02.80 Dementia in other diseases classified elsewhere, unspecified severity, without behavioral disturbance, psychotic disturbance, mood disturbance, and anxiety; E86.0 Dehydration; I10 Essential (primary) hypertension; E78.5 Hyperlipidemia, unspecified; R74.8 Abnormal levels of other serum enzymes; F41.9 Anxiety disorder, unspecified; H54.7 Unspecified visual loss; J45.909 Unspecified asthma, uncomplicated; Z51.5 Encounter for palliative care; Z79.84 Long term (current) use of oral hypoglycemic drugs; Z79.899 Other long term (current) drug therapy; Z79.82 Long term (current) use of aspirin